=== PATIENT | female | born 1975 | race Asian ===

== ENCOUNTER 2024-06-22 08:50 | Emergency (ER) | payer OTHER ==
[~2024-06-22] VITALS: Ht 154.9 cm; Wt 70.0 kg
[2024-06-22 08:58] VITALS: TEMP 98.3
[2024-06-22] MEDS: LORazepam 1 MG TABLET PO ONE (09:18)
[2024-06-22] MEDS: LIDOCAINE 1% 10 ML VIAL SQ ONE (09:19)
[2024-06-22] MEDS: PERTUSS(ACELL),DIPH,TET/PF 0.5 ML SYRINGE [ADULT] IM. ONE (09:21)
[2024-06-22 10:30] VITALS: BP 109/76; PULSE 77; RESP 18; O2SAT 98
[2024-06-22] MEDS ORDERED: IBUP-1492 PO (10:33)
== END 2024-06-22 11:02 | disposition home or self-care (01) ==
LOC: EMS 08:51
DX: R55 Syncope and collapse (principal); F41.0 Panic disorder [episodic paroxysmal anxiety]; R06.4 Hyperventilation; X58.XXXA Exposure to other specified factors, initial encounter; Y93.89 Activity, other specified; Y92.89 Other specified places as the place of occurrence of the external cause; Y99.0 Civilian activity done for income or pay
CPT/HCPCS: 99283; 90715; 90471; J3490